=== PATIENT | male | born 1990 | race Caucasian/White ===

== ENCOUNTER 2019-01-01 21:58 | Emergency (ER) | payer OTHER, MEDICAID, SELFPAY ==
[2019-01-01 22:08] VITALS: BP 107/81; PULSE 133; RESP 30; O2SAT 94
[2019-01-01 22:12] VITALS: TEMP 38.3
[2019-01-01] MEDS: SODIUM CHLORIDE 0.9% 1,000 ML 1000 ML IV (22:17)
[2019-01-01 22:21] LABS: Add Manual Diff / Slide Review NO; Basophils Absolute Auto 100 /uL (0-100); Basophils Percent Auto 0.8 % (0-2); Eosinophils Absolute Auto 100 /uL (0-450); Eosinophils Percent Auto 0.5 % (2-4); Hematocrit 46.4 % (41-53); Hemoglobin 15.7 g/dL (13.5-17.5); Lymphocytes Absolute Auto 600 /uL (1100-4500); Lymphocytes Percent Auto 5.1 % (25-40); Mean Corpuscular HGB Conc 33.9 % (30-36); Mean Corpuscular Hemoglobin 28.4 PG (26-34); Mean Corpuscular Volume 83.9 fL (80-100); Monocytes Absolute Auto 400 /uL (0-900); Monocytes Percent Auto 3.8 % (3-14); Neutrophils Absolute Auto 10600 /uL (1500-7000); Neutrophils Percent Auto 89.8 % (50-75); Platelet Count 323 X10^3/uL (150-400); Red Blood Cell Count 5.53 X10^6/uL (4.5-5.9); Red Cell Distribution Width 13.8 % (11.6-14.8); White Blood Cell Count 11.8 X10^3/uL (4.5-11.0)
--- NOTE | 2019-01-01 22:27 | ED.NAVMDI ---
HPI - Nausea/Vomiting/Diarrhea General Chief complaint: Nausea/Vomiting/Diarrhea Stated complaint: DIARRHEA VOMITING Time Seen by Provider: 01/01/19 22:09 Source: patient Mode of arrival: Ambulatory Limitations: no limitations History of Present Illness HPI Narrative: 28-year-old male here for evaluation of 24 hours of nausea vomiting and diarrhea. Multiple episodes throughout today. Decreased oral intake. No recent travel. No recent sick contacts. Related Data Previous Rx's Medication Instructions Recorded penicillin V potassium 500 mg PO TID #30 tab 05/06/16 prednisone 0 PO QDAY #7 tab 05/06/16 ondansetron 4 mg PO Q6H PRN #10 tab 01/01/19 Allergies Allergy/AdvReac Type Severity Reaction Status Date / Time No Known Allergies Allergy Uncoded 06/08/17 12:42 Review of Systems Constitutional Constitutional: Reports fever(s) Cardiovascular Cardiovascular: Denies chest pain and Denies dyspnea Respiratory Respiratory: Denies dyspnea Gastrointestinal Gastrointestinal: Reports diarrhea, Reports nausea and Reports vomiting Integumentary/Breasts Skin/Breast: Denies lesions and Denies rash Neurologic Neurologic: Denies behavioral changes Psychiatric Psychiatric: Denies behavioral changes Hematologic/Lymphatic Hematologic/Lymphatic: Denies easy bleeding and Denies easy bruising Patient History Medical History Patient denies medical problems (Acute) Social History Smoking Status: Current every day smoker Substance Use Type: marijuana Exam Initial Vital Signs Initial Vital Signs: Vital Signs Pulse Rate 133 H 01/01/19 22:08 Respiratory Rate 30 H 01/01/19 22:08 Blood Pressure 107/81 01/01/19 22:08 Pulse Oximetry 94 01/01/19 22:08 Const General: cooperative and comfortable Orientation: alert, awake and oriented x3 HENMT Head: normal to inspection and normocephalic Resp Effort & Inspection: normal respiratory effort Cardio Rate: tachycardic Pulses: radial pulses present GI Inspection: non-distended Palpation: soft Skin Lesions: no lesions Rashes: no rashes Neuro General: alert and awake Cognition: normal cognition Speech: speech normal Extrem General: normal to inspection and capillary refill normal Psych Appearance: grossly normal and well kempt Course Orders Ordered: ED Orders 01/01/19 22:10 EKG-12 Lead Stat 11/04/19 22:15 Complete Blood Count AUTO DIFF Stat Comprehensive Metabolic Panel Stat Lipase Stat Procalcitonin Stat 01/01/19 22:23 Lactate (Lactic Acid) Stat Discontinued Medications Acetaminophen (Tylenol) 650 mg PO NOW ONE Stop: 01/01/19 22:36 Last Admin: 01/01/19 23:02 Dose: 650 mg Documented by: MADHU Sodium Chloride (Normal Saline 0.9%) 1,000 mls @ 1,000 mls/hr IV BOLUS ONE Stop: 01/01/19 23:08 Last Infusion: 01/01/19 23:00 Dose: 0 mls/hr Documented by: Admin: 01/01/19 22:17 Dose: 1,000 mls/hr Documented by: MADHU Ondansetron HCl (Zofran Odt Prepack) 1 bottle MISC SEEINSTR ONE Stop: 01/01/19 23:51 Vital Signs Vital signs: Vital Signs - 8 hr 01/01/19 22:08 01/01/19 22:12 01/01/19 22:36 Temperature 101 F H Pulse Rate 133 H 117 H Respiratory Rate 30 H 21 Blood Pressure 107/81 Blood Pressure [Left Arm] 115/82 Pulse Oximetry 94 95 01/01/19 23:02 01/01/19 23:35 01/01/19 23:55 Temperature 101.0 F H Pulse Rate 119 H 110 H Respiratory Rate 25 H 20 Blood Pressure Blood Pressure [Left Arm] 106/76 106/76 Pulse Oximetry 92 95 MDM - Nausea/Vomiting/Diarrhea Lab Data Attestation: I reviewed the patient's lab results. Result diagrams: 01/01/19 22:15 01/01/19 22:15 Labs: Lab Results 01/01/19 01/01/19 01/01/19 Range/Units 22:15 22:15 22:15 WBC 11.8 H (4.5-11.0) X10^3/uL RBC 5.53 (4.5-5.9) X10^6/uL Hgb 15.7 (13.5-17.5) g/dL Hct 46.4 (41-53) % MCV 83.9 (80-100) fL MCH 28.4 (26-34) PG MCHC 33.9 (30-36) % RDW 13.8 (11.6-14.8) % Plt Count 323 (150-400) X10^3/uL Neut % (Auto) 89.8 H (50-75) % Lymph % (Auto) 5.1 L (25-40) % Sampson % (Auto) 3.8 (3-14) % Eos % (Auto) 0.5 L (2-4) % Baso % (Auto) 0.8 (0-2) % Neut # (Auto) 67348 H (4980-5808) /uL Lymph # (Auto) 600 L (8932-1358) /uL Sampson # (Auto) 400 (0-900) /uL Eos # (Auto) 100 (0-450) /uL Baso # (Auto) 100 (0-100) /uL Sodium 137 (137-145) mmol/L Potassium 4.0 (3.4-5.1) mmol/L Chloride 104 (98-107) mmol/L Carbon Dioxide 23 (22-32) mmol/L BUN 17 (9-20) mg/dL Creatinine 0.70 (0.66-1.25) mg/dL Estimated GFR > 60.0 (>60) mL/min BUN/Creatinine Ratio 24.3 H (6-22) Glucose 109 H (70-100) mg/dL Lactate (0.7-2.1) mmol/L Calcium 9.2 (8.4-10.2) mg/dL Total Bilirubin 0.9 (0.2-1.3) mg/dL AST 35 (17-59) IU/L ALT 32 (<50) IU/L Alkaline Phosphatase 58 (38-126) U/L Total Protein 7.5 (6.3-8.2) g/dL Albumin 4.5 (3.5-5.0) g/dL Globulin 3.0 (1.7-4.1) g/dL Albumin/Globulin Ratio 1.5 (1.0-2.8) Lipase 205 (23-300) U/L Procalcitonin 0.34 (<0.5) ng/mL 01/01/19 Range/Units 22:23 WBC (4.5-11.0) X10^3/uL RBC (4.5-5.9) X10^6/uL Hgb (13.5-17.5) g/dL Hct (41-53) % MCV (80-100) fL MCH (26-34) PG MCHC (30-36) % RDW (11.6-14.8) % Plt Count (150-400) X10^3/uL Neut % (Auto) (50-75) % Lymph % (Auto) (25-40) % Sampson % (Auto) (3-14) % Eos % (Auto) (2-4) % Baso % (Auto) (0-2) % Neut # (Auto) (3678-4408) /uL Lymph # (Auto) (3856-6990) /uL Sampson # (Auto) (0-900) /uL Eos # (Auto) (0-450) /uL Baso # (Auto) (0-100) /uL Sodium (137-145) mmol/L Potassium (3.4-5.1) mmol/L Chloride (98-107) mmol/L Carbon Dioxide (22-32) mmol/L BUN (9-20) mg/dL Creatinine (0.66-1.25) mg/dL Estimated GFR (>60) mL/min BUN/Creatinine Ratio (6-22) Glucose (70-100) mg/dL Lactate 0.6 L (0.7-2.1) mmol/L Calcium (8.4-10.2) mg/dL Total Bilirubin (0.2-1.3) mg/dL AST (17-59) IU/L ALT (<50) IU/L Alkaline Phosphatase (38-126) U/L Total Protein (6.3-8.2) g/dL Albumin (3.5-5.0) g/dL Globulin (1.7-4.1) g/dL Albumin/Globulin Ratio (1.0-2.8) Lipase (23-300) U/L Procalcitonin (<0.5) ng/mL ECG Data Attestation: I personally reviewed and interpreted this ECG as follows: Prior ECG tracings: not available for review Interpretation: Sinus tachycardia Ventricular rate of 129 Normal QRS Normal QTC No ST T wave changes MDM Narrative Medical decision making narrative: Patient is otherwise healthy. He is nontoxic appearing. Was tachycardic upon arrival. This did improve with fluids. Suspect this tachycardia was secondary to dehydration. Was able to tolerate oral intake. No indication for antibiotics. Will send home with nausea medication. He was given return precautions and follow-up instructions. Discharge Plan Departure Patient Disposition: Home Clinical Impression: Vomiting and diarrhea, Dehydration Discharge Date/Time: 01/01/19 23:59 Instructions: DI for Dehydration -- Adult, DI for Vomiting -- Adult Activity Restrictions/Additional Instructions: Recommend that you increase your fluid intake. Use small amounts of water over long periods of time. Take the nausea medication as needed and as directed. Contact your primary provider for follow-up. Return to the emergency department for any new or worsening symptoms Prescriptions: New ondansetron 4 mg tablet,disintegrating 4 mg PO Q6H PRN (Reason: nausea and vomiting) Qty: 10 RF: 0 No Action prednisone 20 MG tablet 0 PO QDAY Qty: 7 RF: 0 penicillin V potassium 500 MG tablet 500 mg PO TID Qty: 30 RF: 0 Stand Alone Forms: Work Release Note
[2019-01-01 22:36] VITALS: BP 115/82; PULSE 117; RESP 21; O2SAT 95
[2019-01-01 22:36] LABS: Alanine Aminotransferase 32 IU/L (<50); Albumin 4.5 g/dL (3.5-5.0); Albumin Globulin Ratio 1.5 (1.0-2.8); Alkaline Phosphatase 58 U/L (38-126); Aspartate Aminotransferase 35 IU/L (17-59); BUN Creatinine Ratio 24.3 (6-22); Bilirubin Total 0.9 mg/dL (0.2-1.3); Blood Urea Nitrogen 17 mg/dL (9-20); Calcium 9.2 mg/dL (8.4-10.2); Carbon Dioxide 23 mmol/L (22-32); Chloride 104 mmol/L (98-107); Estimated Glomerular Filt Rate > 60.0 mL/min (>60); Glucose 109 mg/dL (70-100); HEMOLYSIS 51 (0-50); Lipase 205 U/L (23-300); Sodium 137 mmol/L (137-145); Total Protein 7.5 g/dL (6.3-8.2)
[2019-01-01 22:45] LABS: Lactate (Lactic Acid) 0.6 mmol/L (0.7-2.1)
[2019-01-01 22:50] LABS: Procalcitonin 0.34 ng/mL (<0.5)
[2019-01-01 23:02] VITALS: TEMP 38.3
[2019-01-01] MEDS: ACETAMINOPHEN 325 MG TABLET 650 MG PO (23:02)
[2019-01-01 23:35] VITALS: BP 106/76; PULSE 119; RESP 25; O2SAT 92
[2019-01-01 23:55] VITALS: BP 106/76; PULSE 110; RESP 20; O2SAT 95
== END 2019-01-01 23:59 | disposition home or self-care (01) ==
PROVIDERS: Emergency Provider Emergency Medicine
DX: R11.10 Vomiting, unspecified (principal); R19.7 Diarrhea, unspecified; E86.0 Dehydration; R00.0 Tachycardia, unspecified
CPT/HCPCS: 36415; 80053; 83605; 83690; 84145; 85025; 93005; 93010; 96360; 99283; 99284